=== PATIENT | male | born 1975 | race Caucasian/White ===

== ENCOUNTER → 2020-03-16 14:00 | Outpatient (BNVA) | payer MEDICAID, SELFPAY | PROVIDERS: Family Provider Nurse Practitioner Family; Visit Provider Family Medicine | DX: E03.9 Hypothyroidism, unspecified (principal); I10 Essential (primary) hypertension; Z13.220 Encounter for screening for lipoid disorders; Z13.6 Encounter for screening for cardiovascular disorders | CPT/HCPCS: 80053; 80061; 84443 ==

== ENCOUNTER → 2021-03-02 11:31 | Outpatient (BNVA) | payer MEDICAID, SELFPAY | PROVIDERS: Family Provider Nurse Practitioner Family; Visit Provider Family Medicine | DX: I10 Essential (primary) hypertension (principal); E78.2 Mixed hyperlipidemia; F41.9 Anxiety disorder, unspecified; F32.9 Major depressive disorder, single episode, unspecified; E03.9 Hypothyroidism, unspecified; K21.9 Gastro-esophageal reflux disease without esophagitis; N40.1 Benign prostatic hyperplasia with lower urinary tract symptoms; R39.12 Poor urinary stream; F33.1 Major depressive disorder, recurrent, moderate; M51.9 Unspecified thoracic, thoracolumbar and lumbosacral intervertebral disc disorder | CPT/HCPCS: 80053; 80061; 84443 ==

== ENCOUNTER → 2022-03-21 09:04 | Outpatient (BNVA) | payer MEDICAID, SELFPAY | PROVIDERS: Family Provider Nurse Practitioner Family; Visit Provider Family Medicine | DX: E78.2 Mixed hyperlipidemia (principal); F41.9 Anxiety disorder, unspecified; F32.9 Major depressive disorder, single episode, unspecified; I10 Essential (primary) hypertension; E03.9 Hypothyroidism, unspecified; M51.9 Unspecified thoracic, thoracolumbar and lumbosacral intervertebral disc disorder; K21.9 Gastro-esophageal reflux disease without esophagitis; N40.0 Benign prostatic hyperplasia without lower urinary tract symptoms; J30.9 Allergic rhinitis, unspecified; N40.1 Benign prostatic hyperplasia with lower urinary tract symptoms; R39.12 Poor urinary stream; F33.1 Major depressive disorder, recurrent, moderate | CPT/HCPCS: 80053; 80061; 84443 ==

== ENCOUNTER → 2023-02-14 14:29 | Outpatient (BNVA) | payer MEDICAID, SELFPAY | PROVIDERS: Family Provider Nurse Practitioner Family; PCP Family Medicine; Visit Provider Family Medicine | DX: E78.2 Mixed hyperlipidemia (principal); F41.9 Anxiety disorder, unspecified; F32.9 Major depressive disorder, single episode, unspecified; J30.9 Allergic rhinitis, unspecified; I10 Essential (primary) hypertension; E03.9 Hypothyroidism, unspecified; M51.9 Unspecified thoracic, thoracolumbar and lumbosacral intervertebral disc disorder; K21.9 Gastro-esophageal reflux disease without esophagitis; N40.0 Benign prostatic hyperplasia without lower urinary tract symptoms; Z12.5 Encounter for screening for malignant neoplasm of prostate; N40.1 Benign prostatic hyperplasia with lower urinary tract symptoms; R39.12 Poor urinary stream | CPT/HCPCS: 80053; 80061; 84153; 84443 ==

== ENCOUNTER → 2023-10-16 09:30 | Outpatient (BNVA) | payer MEDICAID, SELFPAY | PROVIDERS: Family Provider Nurse Practitioner Family; PCP Family Medicine; Visit Provider Family Medicine | DX: I10 Essential (primary) hypertension (principal); E03.9 Hypothyroidism, unspecified; R73.9 Hyperglycemia, unspecified; Z13.1 Encounter for screening for diabetes mellitus | CPT/HCPCS: 80053; 83036; 84443 ==

== ENCOUNTER → 2024-03-10 09:06 | Outpatient (BNVA) | payer MEDICAID, SELFPAY | PROVIDERS: Family Provider Nurse Practitioner Family; PCP Family Medicine; Visit Provider Family Medicine | DX: I10 Essential (primary) hypertension (principal); E03.9 Hypothyroidism, unspecified; E78.2 Mixed hyperlipidemia | CPT/HCPCS: 80053; 80061; 84443 ==

== ENCOUNTER → 2024-09-08 09:55 | Outpatient (BNVA) | payer MEDICAID, SELFPAY | PROVIDERS: Family Provider Nurse Practitioner Family; PCP Family Medicine; Visit Provider Family Medicine | DX: E03.9 Hypothyroidism, unspecified (principal); L08.9 Local infection of the skin and subcutaneous tissue, unspecified; L73.9 Follicular disorder, unspecified; M51.9 Unspecified thoracic, thoracolumbar and lumbosacral intervertebral disc disorder; Z72.0 Tobacco use; Z12.5 Encounter for screening for malignant neoplasm of prostate; I10 Essential (primary) hypertension; K59.00 Constipation, unspecified; K21.9 Gastro-esophageal reflux disease without esophagitis; N40.1 Benign prostatic hyperplasia with lower urinary tract symptoms; R39.12 Poor urinary stream; F41.9 Anxiety disorder, unspecified; J30.1 Allergic rhinitis due to pollen | CPT/HCPCS: 80053; 84443; 85025; G0103 ==

== ENCOUNTER → 2024-09-22 09:25 | Outpatient (BNVA) | payer MEDICAID, SELFPAY | PROVIDERS: Family Provider Nurse Practitioner Family; PCP Family Medicine; Referring Provider Family Medicine; Visit Provider Nurse Practitioner Family | DX: L02.11 Cutaneous abscess of neck (principal); L73.9 Follicular disorder, unspecified | CPT/HCPCS: 99204 ==

== ENCOUNTER 2024-10-02 08:36 | Outpatient (CLI) | payer MEDICAID, SELFPAY ==
[2024-10-02 09:22] LABS: Iron 69 ug/dL (59-158); Percent Saturation 16.5 % (20-50); Total Iron Binding Capacity 416 mcg/dl; Unsaturated Iron Binding 347 ug/dL (112-347)
[2024-10-02 09:36] LABS: 25 Hydroxy Vitamin D 7 ng/mL (30-100)
== END 2024-10-02 08:37 | disposition home or self-care (01) ==
PROVIDERS: Family Provider Nurse Practitioner Family; PCP Family Medicine
DX: L02.11 Cutaneous abscess of neck (principal)
CPT/HCPCS: 36415; 82306; 83540; 83550

== ENCOUNTER 2024-10-20 10:26 | Outpatient (CLI) | payer MEDICAID, SELFPAY ==
--- NOTE | 2024-10-20 10:45 | US_ITS ---
WS: [id number] Complete ABDOMINAL ULTRASOUND HISTORY: R74.8 - Abnormal levels of other serum enzymes COMPARISON: None available. Liver: 16.3 cm in length. Normal size liver and echogenicity. No bile duct dilatation or mass. Portal Vein: Normal hepatopetal flow with monophasic waveform. Gallbladder: Prior cholecystectomy. CBD: 0.4 cm Pancreas: Not visualized. Right kidney: 11.8 cm x 5.5 x 4.9 cm. Cortex:1.4 cm. Normal size kidney. No obstruction or mass. Left kidney: 12.5 cm x 5.8 cm x 5.7 cm. Cortex: 1.3 cm. Normal size and echogenicity. Hypoechoic mass with low-level echoes mid RIGHT kidney measures 4.6 x 3.7 x 4.3 cm. There may be slight through transmission. This is not a simple cyst by ultrasound. Spleen: 15.6 cm. Moderate splenomegaly. Normal concave hilum. Aorta and IVC: Unremarkable abdominal aorta and IVC. Small RIGHT pleural effusion. US/US abdomen complete* [id number] Impression: 1. Status post cholecystectomy. 2. Hypoechoic mass LEFT kidney measures 4.6 x 3.7 x 4.3 cm. This is not a simp le cyst by ultrasound. Recommend follow-up MRI or CT for renal mass protocol wh ich would include with and without contrast. 3. Moderate splenomegaly. Consider infectious or neoplastic causes.
== END 2024-10-20 10:27 | disposition home or self-care (01) ==
LOC: RAD 10:28
PROVIDERS: PCP Family Medicine; Visit Provider Family Medicine
DX: R74.8 Abnormal levels of other serum enzymes (principal); Z90.49 Acquired absence of other specified parts of digestive tract; N28.89 Other specified disorders of kidney and ureter; R16.1 Splenomegaly, not elsewhere classified; J90 Pleural effusion, not elsewhere classified
CPT/HCPCS: 76700

== ENCOUNTER 2024-11-04 14:06 | Outpatient (CLI) | payer MEDICAID, SELFPAY ==
--- NOTE | 2024-11-04 14:30 | MR_ITS ---
WS: [id number] MRI ABDOMEN WITH AND WITHOUT CONTRAST. COMPARISON: Abdomen ultrasound 10/20/2024 Multiplanar, multisequence imaging is performed with and without contrast. MultiHance 20 mL IV. LEFT kidney: Normal size kidney. There is a solid mass with variable signal in the mid lateral LEFT kidney. There is a central renal scar. This mass is predominantly of increased signal on all pulse sequences with mild heterogeneity. On the postcontrast imaging there is enhancement. On the more delayed imaging there is less enhancement within the mass than the adjacent kidney. Renal mass measures 4.6 x 4.3 x 4.1 cm and is highly suspicious for renal cell carcinoma. No renal obstruction. RIGHT kidney is negative. No enhancing masses. Prior cholecystectomy. Spleen is enlarged at 17.2 cm. Mild hepatic steatosis. Normal pancreas. No pancreatic duct dilatation. Normal size aorta. No renal vein thrombosis. No ascites or adenopathy. No pleural effusions. MR/MR abdomen wo/w con* [id number] IMPRESSION: 1. Solid enhancing LEFT renal mass measures 4.6 x 4.3 x 4.1 cm. Atypical imagi ng presentation for renal cell carcinoma but this is a solid mass with central scar. Differential includes renal cell carcinoma, oncocytoma and less likely ly mphoma. Oncocytoma is often will have a central scar. Central necrosis is diffi cult to differentiate from scar. Recommend follow-up with urology. 2. Splenic enlargement. Spleen is enlarged at 17.2 cm of unknown etiology. 3. No ascites or additional lymph nodes. 4. Prior cholecystectomy.
[2024-11-04] MEDS: gadobenate dimeglumine 20 mL vial IV (15:20)
== END 2024-11-04 14:07 | disposition home or self-care (01) ==
PROVIDERS: PCP Family Medicine; Visit Provider Family Medicine
DX: N28.89 Other specified disorders of kidney and ureter (principal); R16.1 Splenomegaly, not elsewhere classified; R93.422 Abnormal radiologic findings on diagnostic imaging of left kidney; Z90.49 Acquired absence of other specified parts of digestive tract; K76.0 Fatty (change of) liver, not elsewhere classified
CPT/HCPCS: 74183